=== PATIENT | male | born 1950 | race Caucasian/White ===

== ENCOUNTER 2019-05-17 20:07 | Emergency (ER) | payer SELFPAY ==
[~2019-05-17 20:07] MED LIST: AMIT100T2 PO; CITA10TA68 PO; CLON0.2T PO; IBUP-676 PO; INSLAN SQ; LISI10TA7 PO; LORA-1001 PO; METF-444 PO; NOVE SQ
[2019-05-17] MEDS ORDERED: GABA-531 PO (20:21)
[2019-05-17] MEDS ORDERED: CHL25 PO (20:21)
[2019-05-17] MEDS ORDERED: ATOR20TA86 PO (20:21)
[2019-05-17] MEDS ORDERED: HYDR25TA84 PO (20:21)
[2019-05-17] MEDS ORDERED: ROPI2 PO (20:21)
[2019-05-17] MEDS ORDERED: ASPI-1182 PO (20:21)
== END 2019-05-17 21:37 | disposition left against medical advice (07) ==
LOC: EMS 20:08
DX: R20.0 Anesthesia of skin (principal); Z53.21 Procedure and treatment not carried out due to patient leaving prior to being seen by health care provider